=== PATIENT | male | born 1980 | race Caucasian/White ===

== ENCOUNTER 2019-03-22 09:57 | Emergency (ER) | payer MEDICAID ==
[~2019-03-22] VITALS: Ht 167.6 cm; Wt 91.5 kg
[~2019-03-22 09:57] MED LIST: IBUP-1542 PO
[2019-03-22 10:01] VITALS: BP 132/81; PULSE 72; RESP 17; Ht 167.6 cm; Wt 91.5 kg
--- NOTE | 2019-03-22 10:36 | ERD ---
ER Documentation Chief Complaint Chief Complaint LEFT TESTICULAR PAIN X3 WEEKS HPI 38-year-old male is here with left testicular pain that is had intermittently for the past 3 weeks. No fever. No penile discharge. No flank pain. No dysuria hematuria or frequency. No recent unprotected sex. ROS All systems reviewed and are negative except as per history of present illness. Medications Home Meds Active Scripts Ibuprofen* (Motrin*) 600 Mg Tab, 600 MG PO Q6, #30 TAB Prov:UREÑARADHA PA-C 03/22/19 Allergies Allergies: Coded Allergies: No Known Allergy (Unverified , 03/22/19) PMhx/Soc Medical and Surgical Hx: pt denies Medical Hx, pt denies Surgical Hx FmHx Family History: No diabetes Physical Exam Vitals Vital Signs Date Temp Pulse Resp B/P (MAP) Pulse Ox O2 O2 Flow FiO2 Time Delivery Rate 03/22/19 97.3 72 17 132/81 97 10:01 (98) Physical Exam Const: No acute distress Head: Atraumatic Eyes: Normal Conjunctiva ENT: Normal External Ears, Nose and Mouth. Neck: Full range of motion. No meningismus. Resp: Clear to auscultation bilaterally Cardio: Regular rate and rhythm, no murmurs Abd: Soft, non tender, non distended. : Bilateral testicles nontender, nonswollen, no inguinal lymphadenopathy, no discharge no rash or lesions Results 24 hrs Laboratory Tests Test 03/22/19 10:43 Bedside Urine pH (LAB) 5.5 Bedside Urine Protein (LAB) Negative Bedside Urine Glucose (UA) Negative Bedside Urine Ketones (LAB) Negative Bedside Urine Blood Trace-intact Bedside Urine Nitrite (LAB) Negative Bedside Urine Leukocyte Esterase (L Negative Procedures/MDM Patient has left-sided testicular pain. Ultrasound and urine dip ordered. Urin e has no evidence of infection. Ultrasound shows a benign 2 mm left epididymal cyst as well as prominent left pampiniform plexus. Patient given copy of the results we can follow-up with primary care. Patient counseled regarding my diagnostic impression and care plan. Prior to discharge all questions answered. Pt agrees with treatment plan and understands strict return precautions. Pt is instructed to follow up with primary care provider within 24-48 hours. Precautionary instructions provided including instructions to return to the ER if not improving or for any worsening or changing symptoms or concerns. Departure Diagnosis: Primary Impression: Epididymal cyst Condition: Stable RADHA UREÑA PA-C Mar 22, 2019 10:36
== END 2019-03-22 11:16 | disposition home or self-care (01) ==
LOC: FTE 09:57
DX: N50.3 Cyst of epididymis (principal)
CPT/HCPCS: 76870; 81003; Z7502